=== PATIENT | female | born 1940 | race Caucasian/White ===

== ENCOUNTER 2020-12-03 06:12 | Day surgery (SDC) | payer MEDICARE ==
[2020-12-02 13:19] LABS: BASOPHILS # (AUTO) 0.1 X10'3 (0-0.2); EOSINOPHILS # (AUTO) 0.1 X10'3 (0-0.9); EOSINOPHILS % (AUTO) 2.3 % (0-6); HEMATOCRIT 31.4 % (35.0-45.0); HEMOGLOBIN 10.5 g/dl (12.0-16.0); LYMPHOCYTES # (AUTO) 1.3 X10'3 (1.1-4.8); LYMPHOCYTES % (AUTO) 21.5 % (21-51); MEAN CORPUSCULAR HEMOGLOBIN 28.2 PG (27.0-31.0); MEAN CORPUSCULAR HGB CONC 33.3 g/dL (33.0-36.5); MEAN CORPUSCULAR VOLUME 84.5 FL (78-98); MEAN PLATELET VOLUME 9.2 FL (7.4-10.4); MONOCYTES # (AUTO) 0.5 X10'3 (0-0.9); MONOCYTES % (AUTO) 8.6 % (2-12); NEUTROPHILS # (AUTO) 3.9 X10'3 (1.8-7.7); NEUTROPHILS % (AUTO) 66.6 % (42-75); PLATELET COUNT 272 X10'3 (140-440); RED BLOOD COUNT 3.71 X10'6 (4.20-5.60); RED CELL DISTRIBUTION WIDTH 14.8 % (11.5-14.5); WHITE BLOOD COUNT 5.9 X10'3 (4.5-11.0)
[2020-12-02 13:32] LABS: PARTIAL THROMBOPLASTIN TIME 28 SECONDS (22-32)
[2020-12-02 13:37] LABS: ALBUMIN 3.9 G/DL (3.4-5.0); ANION GAP 13 (8-16); BLOOD UREA NITROGEN 18 MG/DL (7-18); BUN/CREATININE RATIO 24.3 (6.6-38.0); CHLORIDE 108 MMOL/L (99-107); CREATININE 0.74 MG/DL (0.40-0.90); GLUCOSE 82 MG/DL (70-104); POTASSIUM 3.8 MMOL/L (3.5-5.1); SODIUM 145 MMOL/L (135-145); TOTAL CARBON DIOXIDE 24.5 MMOL/L (24-32); eGFR 76 ML/MIN
[~2020-12-03] VITALS: Ht 147.3 cm; Wt 78.6 kg
[2020-12-03] VITALS (13 sets, daily range): BP systolic 107–133; BP diastolic 34–70
[~2020-12-03 06:12] MED LIST: MIDAZolam 1mg/ml 10ml vial IV ONE; fentaNYL/PF 50MCG/1 ML 2ML syringe IV ONE
[2020-12-03] MEDS ORDERED: LIDOcaine/PRILOcaine 5gm cream TP ONE (06:40)
[2020-12-03] MEDS ORDERED: diphenhydrAMINE 25mg capsule PO PRN (06:40)
[2020-12-03] MEDS ORDERED: normal saline 1,000 ML IV SCH (06:40)
[2020-12-03] MEDS ORDERED: LORazepam 0.5 MG tablet PO PRN (06:40)
[2020-12-03] MEDS ORDERED: LEVO75TA7 PO (06:43)
[2020-12-03] MEDS ORDERED: DILT30TA5 PO (06:43)
[2020-12-03] MEDS ORDERED: ESCI20TA39 PO (06:43)
[2020-12-03] MEDS ORDERED: SIMV-42 PO (06:48)
[2020-12-03] MEDS ORDERED: CHOL100046 PO (06:48)
[2020-12-03] MEDS ORDERED: ASPI-1265 PO (06:48)
[2020-12-03] MEDS ORDERED: MULT-1085 PO (06:48)
[2020-12-03] MEDS ORDERED: verapamil 2.5 mg/ml inj IV ONE (07:43)
[2020-12-03] MEDS ORDERED: midazolam 1 mg/ML 2ml injection ONE (07:43)
[2020-12-03] MEDS ORDERED: fentaNYL/PF 50MCG/1 ML 2ML syringe ONE (07:43)
[2020-12-03] MEDS ORDERED: nitroGLYCERIN-Tridil 50MG/D5W 250 ML IV ONE (07:44)
[2020-12-03] MEDS ORDERED: LIDOcaine 1% (10mg/ml)w/preservative injection 20ml MDV ONE (07:44)
[2020-12-03] MEDS ORDERED: iohexol 350 MG/ML 50ML vial IV ONE (07:44)
[2020-12-03] MEDS ORDERED: heparin 1,000unit/ml 10ml vial 10 ML ONE (07:44)
[2020-12-03] MEDS ORDERED: iohexol 350MG/ML 100ml bottle IV ONE (07:44)
[2020-12-03 09:32] LABS: ISTAT HGB ART 10.2 g/dl (12.0-16.0); ISTAT Hct ART 30 %PCV (35-48); ISTAT O2 SATURATION ARTERIAL 98 % (95-98); ISTAT SOURCE BLNK
[2020-12-03 09:32] LABS: ISTAT Hct MIX 31 %PCV (35-48); ISTAT O2 SATURATION MIX VENOUS 58 % (60-80); ISTAT SOURCE BLNK
== END 2020-12-03 15:15 | disposition home or self-care (01) ==
LOC: SSTAY O 06:12
PROVIDERS: ATTEND Internal Medicine Cardiovascular Disease
DX: R06.02 Shortness of breath (principal); R53.83 Other fatigue; I35.0 Nonrheumatic aortic (valve) stenosis; I25.10 Atherosclerotic heart disease of native coronary artery without angina pectoris; I11.0 Hypertensive heart disease with heart failure; I50.9 Heart failure, unspecified; E78.5 Hyperlipidemia, unspecified; E11.9 Type 2 diabetes mellitus without complications; F03.90 Unspecified dementia, unspecified severity, without behavioral disturbance, psychotic disturbance, mood disturbance, and anxiety; Z79.82 Long term (current) use of aspirin; Z79.899 Other long term (current) drug therapy; Z79.84 Long term (current) use of oral hypoglycemic drugs; Z90.49 Acquired absence of other specified parts of digestive tract; Z87.891 Personal history of nicotine dependence; Z88.2 Allergy status to sulfonamides; Z80.9 Family history of malignant neoplasm, unspecified; Z82.49 Family history of ischemic heart disease and other diseases of the circulatory system
CPT/HCPCS: 36415; 76937; 80048; 82803; 85014; 85025; 85610; 85730; 93005; 93460; 93567; 99152; 99153; C1769; C1894; J1644; J2001; J2250; J3010; J7030; Q0163; Q9967; A4620; A5120; A6258; C1751; J3490

== ENCOUNTER 2020-12-04 21:59 | Emergency (ER) | payer MEDICARE ==
[~2020-12-04 21:59] MED LIST changes: +ASPI-1265 PO; +CHOL100046 PO; +DILT30TA5 PO; +ESCI20TA39 PO; +LEVO75TA7 PO; -MIDAZolam 1mg/ml 10ml vial IV ONE; +MULT-1085 PO; +SIMV-42 PO; -fentaNYL/PF 50MCG/1 ML 2ML syringe IV ONE
== END 2020-12-04 22:22 | disposition left against medical advice (07) ==
LOC: ER 21:59
DX: M79.89 Other specified soft tissue disorders (principal); Z53.21 Procedure and treatment not carried out due to patient leaving prior to being seen by health care provider

== ENCOUNTER 2020-12-11 10:05 | Outpatient (CLI) | payer MEDICARE ==
[2020-12-11 11:04] LABS: BASOPHILS % (AUTO) 0.5 % (0-1); EOSINOPHILS # (AUTO) 0.1 X10'3 (0-0.9); EOSINOPHILS % (AUTO) 1.9 % (0-6); HEMATOCRIT 29.3 % (35.0-45.0); HEMOGLOBIN 9.6 g/dl (12.0-16.0); LYMPHOCYTES % (AUTO) 12.9 % (21-51); MEAN CORPUSCULAR HEMOGLOBIN 27.8 PG (27.0-31.0); MEAN CORPUSCULAR HGB CONC 32.7 g/dL (33.0-36.5); MEAN CORPUSCULAR VOLUME 85.1 FL (78-98); MEAN PLATELET VOLUME 9.5 FL (7.4-10.4); MONOCYTES # (AUTO) 0.6 X10'3 (0-0.9); MONOCYTES % (AUTO) 7.3 % (2-12); NEUTROPHILS # (AUTO) 5.9 X10'3 (1.8-7.7); NEUTROPHILS % (AUTO) 77.4 % (42-75); PLATELET COUNT 247 X10'3 (140-440); RED BLOOD COUNT 3.44 X10'6 (4.20-5.60); RED CELL DISTRIBUTION WIDTH 14.9 % (11.5-14.5); WHITE BLOOD COUNT 7.6 X10'3 (4.5-11.0)
[2020-12-11 11:07] LABS: PARTIAL THROMBOPLASTIN TIME 29 SECONDS (22-32)
[2020-12-11 11:09] LABS: ALANINE AMINOTRANSFERASE 20 U/L (12-78); ALBUMIN 3.6 G/DL (3.4-5.0); ALBUMIN/GLOBULIN RATIO 0.9 (1.1-1.5); ALKALINE PHOSPHATASE 84 IU/L (46-116); ANION GAP 11 (8-16); ASPARTATE AMINO TRANSFERASE 20 U/L (10-37); BILIRUBIN,TOTAL 0.2 MG/DL (0.1-1.0); BLOOD UREA NITROGEN 24 MG/DL (7-18); BUN/CREATININE RATIO 29.3 (6.6-38.0); CALCIUM 8.5 MG/DL (8.5-10.1); CHLORIDE 107 MMOL/L (99-107); CREATININE 0.82 MG/DL (0.40-0.90); GLUCOSE 187 MG/DL (70-104); POTASSIUM 3.6 MMOL/L (3.5-5.1); SODIUM 142 MMOL/L (135-145); TOTAL CARBON DIOXIDE 23.6 MMOL/L (24-32); TOTAL PROTEIN 7.4 G/DL (6.4-8.2); eGFR 67 ML/MIN
[2020-12-11] MEDS ORDERED: IODIXANOL 320 MG/ML INFUS..BTL 100ML IV ONE ×2 (11:38→12:33)
[2020-12-11] MEDS ORDERED: IODIXANOL 320 MG/ML INFUS..BTL 50ML IV ONE ×2 (11:38→12:34)
[2020-12-11] MEDS ORDERED: metoprolol tartrate 1mg/ml inj IV ONE ×2 (12:17→12:54)
[2020-12-11 12:22] VITALS: BP 146/83
[2020-12-11 12:27] VITALS: BP 116/68
[2020-12-11 12:56] VITALS: BP 107/53
[2020-12-11 13:08] VITALS: BP 115/41
== END 2020-12-11 23:59 | disposition home or self-care (01) ==
LOC: RAD 10:05
PROVIDERS: ATTEND Internal Medicine Cardiovascular Disease
DX: I65.23 Occlusion and stenosis of bilateral carotid arteries (principal); R94.2 Abnormal results of pulmonary function studies; D64.9 Anemia, unspecified; I35.1 Nonrheumatic aortic (valve) insufficiency; K55.1 Chronic vascular disorders of intestine; M43.8X6 Other specified deforming dorsopathies, lumbar region; E27.8 Other specified disorders of adrenal gland; M81.8 Other osteoporosis without current pathological fracture; I26.99 Other pulmonary embolism without acute cor pulmonale; M47.819 Spondylosis without myelopathy or radiculopathy, site unspecified
CPT/HCPCS: 36415; 71046; 71275; 74174; 80053; 85025; 85610; 85730; 93880; 94010; 94727; 94729; Q9967; J3490

== ENCOUNTER → 2021-02-16 | Outpatient (CLI) | payer MEDICARE | END | disposition home or self-care (01) | LOC: CARD DIAG 10:45 | PROVIDERS: ATTEND Internal Medicine Cardiovascular Disease | DX: I34.0 Nonrheumatic mitral (valve) insufficiency (principal); Z95.2 Presence of prosthetic heart valve; Z48.812 Encounter for surgical aftercare following surgery on the circulatory system | CPT/HCPCS: 93005; 93308 ==